=== PATIENT | male | born 1990 | race American Indian/Alaskan Native ===

== ENCOUNTER 2018-08-18 13:26 | Emergency (ER) | payer OTHER ==
--- NOTE | 2018-08-18 13:32 | Emergency Department Report ---
Blank Doc - Documentation Documentation: This is a 27-year-old male that presents with abdominal pain with n/v. This initial assessment/diagnostic orders/clinical plan/treatment(s) is/are subject to change based on patient's health status, clinical progression and re- assessment by fellow clinical providers in the ED. Further treatment and workup at subsequent clinical providers discretion. Patient/guardians urged not to elope from the ED as their condition may be serious if not clinically assessed and managed. Initial orders include: 1- Patient sent to [facility] for further evaluation and treatment 2- labs
[2018-08-18 13:53] LABS: Basophils # (Auto) 0.1 K/mm3 (0.0-0.1); Eosinophils % (Auto) 0.1 % (0.0-4.3); Hematocrit 45.5 % (35.5-45.6); Hemoglobin 15.5 gm/dl (11.8-15.2); Lymphocytes # (Auto) 1.5 K/mm3 (1.2-5.4); Mean Corpuscular HGB Conc 34 % (32-34); Mean Corpuscular Volume 93 fl (84-94); Monocytes # (Auto) 0.3 K/mm3 (0.0-0.8); Monocytes % (Auto) 3.2 % (0.0-7.3); Platelet Count 280 K/mm3 (140-440); Red Cell Distribution Width 13.4 % (13.2-15.2)
[2018-08-18 14:15] LABS: Alanine Aminotransferase 37 units/L (7-56); Albumin 4.6 g/dL (3.9-5); BUN/Creatinine Ratio 8; Blood Urea Nitrogen 8 mg/dL (9-20); Calcium 9.6 mg/dL (8.4-10.2); Hemolysis Index 6
[2018-08-18 14:15] LABS: Bilirubin,Urine NEG (Negative); Blood,Urine NEG (Negative); Color,Urine Yellow (Yellow); Mucus,Urine FEW /HPF; Urobilinogen,Urine < 2.0 mg/dL (<2.0)
[2018-08-18 14:18] LABS: Bilirubin,Direct < 0.2 mg/dL (0-0.2)
[2018-08-18] MEDS ORDERED: ZOFRAN ODT PO ONE (15:11)
--- NOTE | 2018-08-18 15:11 | Emergency Department Report ---
Vomiting/Diarrhea - HPI Chief Complaint: Nausea/Vomiting/Diarrhea Stated Complaint: VOMIT/DIARRHEA/WEAK Time Seen by Provider: 08/18/18 13:31 Duration: 1 Day Severity: mild Nausea/Vomiting Severity: Moderate Diarrhea Severity: Moderate Pain Location: Generalized Pain Severity: Mild Symptoms: Yes Watery Diarrhea, Yes Able to Tolerate Fluids, Yes Recent Unusual Foods (pizza and wings), No Bloody diarrhea, No Fever, No Recent Untreated Water, No Recent use of Antibiotics, No Family w/ Similar Symptoms, No Contacts w/ Similar Symptoms, No Rash, No Hematuria, No Recent URI Symptoms Other History: 27-year-old male presents with vomiting and diarrhea that started this morning. Patient states that he cannot recall the monitor times he vomited today as well as diarrhea episodes. Patient states that minimal abdominal pain. Denies he is normal symptoms. ED Review of Systems ROS: Stated complaint: VOMIT/DIARRHEA/WEAK Other details as noted in HPI Comment: All other systems reviewed and negative ED Past Medical Hx - Past Medical History Previous Medical History?: No - Surgical History Additional Surgical History: knee repair - Social History Smoking Status: Never Smoker Substance Use Type: Alcohol - Medications Home Medications: Home Medications Medication Instructions Recorded Confirmed Last Taken Type Ondansetron [Zofran Odt] 4 mg PO Q8HR #30 tab.rapdis 08/18/18 Unknown Rx Vomiting Diarrhea Exam - Exam General: Vital signs noted. No distress. Alert and acting appropriately. HEENT: Yes Moist Mucous Membranes, No Pharyngeal Erythema, No Pharyngeal Exudates, No Rhinorrhea, No Conjuctival Injection, No Frontal Tenderness, No Maxillary Tenderness Neck: No Adenopathy, No Rigidity Lungs: Yes Clear Lung Sounds, Yes Good Air Exchange, No Wheezes, No Stridor, No Cough, No Nasal Flaring, No Retractions, No Use of Accessory Muscles Heart exam: Regular: Yes, Murmur: No, Tachycardia: No Abdomen: Tenderness: No, Peritoneal Signs: No, Distention: No, Hyperactive Bowel sounds: No Skin exam: Rash: No, Edema: No, Normal turgor: Yes Neurologic: Alert and oriented, no deficits. Musculoskeletal: Unremarkable. Exam: No active vomiting in the ED noted ED Course Vital Signs 08/18/18 08/18/18 13:28 13:31 Temperature 97.5 F L 98 F Pulse Rate 56 L 56 L Respiratory 18 18 Rate Blood Pressure 149/94 Blood Pressure 149/94 [Right] O2 Sat by Pulse 98 98 Oximetry ED Medical Decision Making - Lab Data Result diagrams: 08/18/18 13:38 08/18/18 13:38 - Radiology Data Radiology results: report reviewed, image reviewed Findings: No free intraperitoneal air. Moderate distention of transverse colon with stool in colon. No air fluid levels. No radiopaque calculus or abnormal calcification. Impression: Gaseous transverse colon the stool in colon. Transcribed By: PTP Dictated By: TAMMY MURILLO MD Electronically Authenticated By: TAMMY MURILLO MD Signed Date/Time: 08/18/18 1500 - Medical Decision Making 27-year-old male presents with gastroenteritis Labs all within normal limits. Patient received Zofran ODT. abdominal x-ray shows no acute abnormality Discuss f/u with pcp Critical care attestation.: If time is entered above; I have spent that time in minutes in the direct care of this critically ill patient, excluding procedure time. ED Disposition Clinical Impression: Gastroenteritis Disposition: DC-01 TO HOME OR SELFCARE Is pt being admited?: No Does the pt Need Aspirin: No Condition: Stable Instructions: Gastroenteritis (ED), Acute Nausea and Vomiting (ED), Food Poisoning (ED) Additional Instructions: Make sure to follow up with the primary care physician as discussed. Take all your medications as you've been prescribed. If you have any worsening symptoms or develop new symptoms please return to ED immediately. Prescriptions: Ondansetron [Zofran Odt] 4 mg PO Q8HR #30 tab.rapdis Referrals: [facility] [Provider Group] - 3-5 Days Forms: Work/School Release Form(ED)
--- NOTE | 2018-08-18 15:21 | XRay Report ---
Abdomen 2 views: History: Pain. Findings: No free intraperitoneal air. Moderate distention of transverse colon with stool in colon. No air fluid levels. No radiopaque calculus or abnormal calcification. Impression: Gaseous transverse colon the stool in colon.
[2018-08-18 15:43] VITALS: BP 123/80
== END 2018-08-18 16:18 | disposition home or self-care (01) ==
LOC: ED 13:26
DX: K52.9 Noninfective gastroenteritis and colitis, unspecified (principal)
CPT/HCPCS: 36415; 74019; 80048; 80076; 81001; 83690; 85025; 99284; Q0162